=== PATIENT | female | born 1985 | race Two or more races ===

== ENCOUNTER 2022-10-25 19:06 | Emergency (ER) | payer MEDICAID ==
[~2022-10-25] VITALS: Ht 165.1 cm; Wt 52.2 kg
--- NOTE | 2022-10-25 19:39 | NUR ---
Pt. in bed, VSS at this time. Placed on monitor.
[2022-10-25 20:13] LABS: HEMATOCRIT 33.8 % (31.2-41.9); MEAN CORPUSCULAR HEMOGLOBIN 31.6 uug (24.7-32.8); MEAN CORPUSCULAR VOLUME 94.2 fL (75.5-95.3); PLATELET COUNT (AUTO) 332 K/uL (179-408)
[2022-10-25 20:49] LABS: ALANINE AMINOTRANSFERASE 27 U/L (14-59); ALKALINE PHOSPHATASE 52 U/L (50-136); ASPARTATE AMINOTRANSFERASE 23 U/L (15-37); BILIRUBIN,DIRECT 0.1 mg/dL (0.0-0.2); BILIRUBIN,TOTAL 0.3 mg/dL (0.2-1.0); CARBON DIOXIDE 27 mmol/L (21-32); CHLORIDE 103 mmol/L (98-107); CREATININE 0.6 mg/dL (0.6-1.3); GLUCOSE 92 mg/dL (74-106); POTASSIUM 3.6 mmol/L (3.5-5.1); TOTAL PROTEIN, SERUM 7.8 g/dL (6.4-8.2); UREA NITROGEN, BLOOD 14 mg/dL (7-18)
--- NOTE | 2022-10-25 20:51 | NUR ---
SEEN AND EXAMINED BY DR. LEVY
[2022-10-25] MEDS ORDERED: IBUPROFEN 600 MG TABLET PO ONE (21:00)
[2022-10-25] MEDS ORDERED: ASPIRIN 81 MG TAB.CHEW PO ONE (21:00)
[2022-10-25] MEDS ORDERED: IBUPROFEN 600 MG TABLET ONE (21:17)
[2022-10-25] MEDS ORDERED: ASPIRIN 81 MG TAB.CHEW ONE (21:17)
[2022-10-25 22:38] LABS: *URINE HCG, QUAL NEGATIVE (NEGATIVE)
[2022-10-25 23:37] VITALS: BP 120/78
--- NOTE | 2022-10-25 23:37 | NUR ---
Patient discharged to home in stable condition. Written and verbal after care instructions given. Patient verbalizes understanding of instructions. Stressed follow up or return to ER for worsening s/s.
== END 2022-10-25 23:37 | disposition home or self-care (01) ==
LOC: ER 19:12
DX: R07.9 Chest pain, unspecified (principal)
CPT/HCPCS: 36415; 71045; 84484; 84703; 85025; 93005; A4663